=== PATIENT | female | born 1945 | race Caucasian/White ===

== ENCOUNTER 2020-07-14 10:02 | Outpatient (CLI) | payer OTHER | END 2020-07-14 11:14 | disposition home or self-care (01) | LOC: SONOGRAMA 10:02 | PROVIDERS: ATTEND Pathology Anatomic Pathology & Clinical Pathology | DX: D34 Benign neoplasm of thyroid gland (principal); E07.89 Other specified disorders of thyroid; E04.1 Nontoxic single thyroid nodule ==

== ENCOUNTER 2021-09-25 08:43 | Outpatient (CLI) | payer OTHER | END 2021-09-25 08:46 | disposition home or self-care (01) | LOC: SONOGRAMA 08:43 | PROVIDERS: ATTEND Pathology Anatomic Pathology & Clinical Pathology | DX: E04.2 Nontoxic multinodular goiter (principal) ==

== ENCOUNTER 2022-03-08 08:27 | Outpatient (CLI) | payer OTHER | END 2022-03-08 08:33 | disposition home or self-care (01) | LOC: SONOGRAMA 08:27 | PROVIDERS: ATTEND Pathology Anatomic Pathology & Clinical Pathology | DX: E07.9 Disorder of thyroid, unspecified (principal); E04.2 Nontoxic multinodular goiter ==